=== PATIENT | female | born 1985 | race African-American/Black ===

== ENCOUNTER 2017-07-25 15:45 | Emergency (ER) | payer BC ==
[2017-07-25 17:09] LABS: Hemoglobin 8.8 g/dL (12.0-16.0); Mean Corpuscular HGB CONC 30.3 g/dL (32.0-36.0); Mean Corpuscular Hemoglobin 23.4 pg (27.0-31.0); Mean Corpuscular Volume 77.1 fl (81.0-99.0); Mean Platelet Volume 8.4 fL (7.4-10.4); Platelet Count 506 thou/uL (130-400); RBC Distribution Width 15.8 % (11.5-14.5); Red Blood Cell (RBC) Count 3.76 mill/uL (4.20-5.40); White Blood Cell (WBC) Count 9.3 thou/uL (4.8-10.8)
[2017-07-25 17:18] LABS: BHCG - Serum Negative (NEGATIVE); Pregs Control Background? CLEAR/WHITE (CLR/WHITE); Pregs Control Bar Appear? YES (CONTROL BAR)
[2017-07-25 17:31] LABS: ALT (SGPT) 26 U/L (8-55); AST (SGOT) 21 U/L (5-34); Albumin 4.1 g/dL (3.5-5.0); Alkaline Phosphatase 98 U/L (40-150); Anion Gap 10 mmol/L (10-20); BUN (Urea Nitrogen) 11 mg/dL (7.0-18.7); Bilirubin, Total 0.2 mg/dL (0.2-1.2); Calc. Creatinine Clearance 0 mL/min (70-130); Calcium 9.1 mg/dL (7.8-10.44); Carbon Dioxide 25 mmol/L (22-29); Chloride 108 mmol/L (98-107); Estimated GFR-MDRD Greater than 90; Globulin 3.3 g/dL (2.4-3.5); Glucose 86 mg/dL (70-105); Potassium 3.4 mmol/L (3.5-5.1); Protein, Total 7.4 g/dL (6.0-8.3); Sodium 140 mmol/L (136-145)
[2017-07-25 17:32] LABS: Anisocytosis SLIGHT = 6-15 cells (100X) (0-5/hpf); Band 1 % (5-11); Basophilic Stippling SLIGHT = 1-2 cells (100X) (None Seen); Elliptocytes SLIGHT = 2-5 cells (100X) (0-1/hpf); Eosinophils 1 % (0-10); Hypochromia SLIGHT = 6-15 cells (100X) (0-5/hpf); Lymphocytes 21 % (21-51); MDiff Complete? YES; Microcytosis SLIGHT = 6-15 cells (100X) (0-5/hpf); Monocytes 5 % (0-10); Neutrophil 70 % (42-75); Ovalocytes SLIGHT = 2-5 cells (100X) (0-1/hpf); PLT Morphology Comment Appears Increased; Polychromasia MODERATE = 3-4 cells (100X) (0-2/hpf); Schistocytes SLIGHT = 2-5 cells (100X) (0-1/hpf); Tear Drops SLIGHT = 2-5 cells (100X) (0-1/hpf)
== END 2017-07-25 17:35 | disposition home or self-care (01) ==
LOC: ERS 15:45
DX: N93.8 Other specified abnormal uterine and vaginal bleeding (principal); D64.9 Anemia, unspecified; F41.9 Anxiety disorder, unspecified; Z79.899 Other long term (current) drug therapy
CPT/HCPCS: 36415; 80053; 84703; 85025; 86850; 86900; 86901; 99284

== ENCOUNTER 2017-09-03 15:29 | Outpatient (CLI) | payer BC ==
[2017-09-03 17:16] LABS: Hemoglobin 10.4 g/dL (12.0-16.0); Mean Corpuscular HGB CONC 31.9 g/dL (32.0-36.0); Mean Corpuscular Hemoglobin 26.9 pg (27.0-31.0); Mean Corpuscular Volume 84.4 fl (81.0-99.0); Mean Platelet Volume 8.5 fL (7.4-10.4); Platelet Count 424 thou/uL (130-400); RBC Distribution Width 19.6 % (11.5-14.5); Red Blood Cell (RBC) Count 3.88 mill/uL (4.20-5.40); White Blood Cell (WBC) Count 7.2 thou/uL (4.8-10.8)
[2017-09-03 17:25] LABS: BHCG - Serum Negative (NEGATIVE); Pregs Control Background? CLEAR/WHITE (CLR/WHITE); Pregs Control Bar Appear? YES (CONTROL BAR)
== END 2017-09-03 15:30 | disposition home or self-care (01) ==
LOC: LABBT 15:29
PROVIDERS: ATTEND Obstetrics & Gynecology
DX: Z01.812 Encounter for preprocedural laboratory examination (principal); D21.9 Benign neoplasm of connective and other soft tissue, unspecified; N92.0 Excessive and frequent menstruation with regular cycle
CPT/HCPCS: 84703; 85027; 86850; 86900; 86901

== ENCOUNTER 2017-09-07 08:07 | Observation (INO) | payer BC ==
--- NOTE | 2017-09-03 12:47 | HP ---
DATE OF SURGERY: 09/07/2017 HISTORY OF PRESENT ILLNESS: Ms. Bender is a 32-year-old female G1, P0, A1 with long history of uterine fibroids with menorrhagia. She has had very heavy menstrual flow due to the fibroids, this started back in 2013 and she had received blood transfusions x2 and IV iron therapy fo r anemia secondary to the menorrhagia. She has also tried oral contraceptives and Nexplanon with con tinued heavy flow. She is desiring fertility. Her recent Pap smear and HPV was negative in 2017. PAST MEDICAL HISTORY: As per HPI, otherwise negative. CURRENT MEDICATIONS: Iron and p.r.n. ibuprofen. ALLERGIES: No known drug allergies. SOCIAL HISTORY: Non-smoker, minimal alcohol use. 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 PHYSICAL EXAMINATION: VITAL SIGNS: Her blood pressure is 130/70, pulse 80, respirations 18, height 68 inches, weight 250, BMI of 38. HEENT: Within normal limits. CHEST: Clear to auscultation. HEART: Regular rate and rhythm. S1, S2 heart sounds. No murmurs, rubs or gallops. ABDOMEN: Soft, nontender, nondistended with no palpable masses. PELVIC: She does have pelvic exam. Vulva and vagina had no lesions. Cervix had no lesions. Her ut erus was approximately 14 weeks size, nontender and adnexa were nontender with no masses. Ultrasound of the pelvis on 04/28/2017 showed her to have uterus 11.5 x 8 x 8.5 cm with an anterior fundal fibr oid measuring 6 x 4 x 5.8 cm partially encroaching on the endometrial lining. She has some small pos terior fibroids that were subserosal 3.37 x 2.14, 2.92 x 1.7 cm respectively. Both ovaries appeared normal. ASSESSMENT: This is a 32-year-old female, G1, P0, A1 with a 14-16 week uterine fibr oids desiring fertility with long history of menorrhagia secondary to fibroids causing significant pr oblems with anemia. PLAN: To proceed with robotic laparoscopic assisted myomectomy. There is also a possibility of proc eeding with open laparotomy and myomectomy. The patient is aware of risk of the surgery and also pos sibility of recurrence of more fibroids due to the nature of the fibroids in general. She is also aw are of the need to have sections for any future pregnancies due to the myomectomy procedure and we can have the uterine wall and risk of uterine rupture and labor. Risks and benefits of proced ure have also been discussed in detail. She is set for surgery 09/07/2017.
[2017-09-03 15:52] VITALS: BMI 37.7
[2017-09-07] MEDS ORDERED: Bupivacaine 0.25% HCL 30 ML VIAL ONE (08:33)
[2017-09-07] MEDS ORDERED: Oxytocin 10 UNITS/ML VIAL ONE (08:33)
[2017-09-07] MEDS ORDERED: Lidocaine 2% w/Epinephrine 1:200K 20 ML VIAL ONE (08:33)
[2017-09-07] MEDS ORDERED: Midazolam HCl 2 mg/2 ml Vial ONE (08:45)
[2017-09-07] MEDS ORDERED: CEFAZOLIN/Water 2 GM/20 ML SYRINGE ONE (10:19)
[2017-09-07] MEDS ORDERED: HYDROmorphone 0.5 MG/0.5 ML SYRINGE ONE (10:20)
[2017-09-07] MEDS ORDERED: Fentanyl 100 MCG/2 ML VIAL ONE ×3 (10:20→14:54)
[2017-09-07] MEDS ORDERED: Lidocaine 1% PF 5 ML VIAL ONE (11:55)
[2017-09-07] MEDS ORDERED: Glycopyrrolate 0.2 MG/ML 5 ML SYRINGE ONE (11:55)
[2017-09-07] MEDS ORDERED: Propofol 200 MG/20 ML VIAL ONE (11:55)
[2017-09-07] MEDS ORDERED: Dexamethasone 20 MG/5 ML VIAL ONE (11:55)
[2017-09-07] MEDS ORDERED: HYDROmorphone 2 MG/ML VIAL SLOW IVP PRN (13:23)
[2017-09-07] MEDS ORDERED: Promethazine HCl 25 MG/ML VIAL SLOW IVP PRN (13:23)
[2017-09-07] MEDS ORDERED: Promethazine HCl 25 MG/ML VIAL IM PRN ×2 (13:23→13:29)
[2017-09-07] MEDS ORDERED: Ondansetron HCl/PF 4 MG/2 ML Vial IVP PRN ×2 (13:23→13:29)
[2017-09-07] MEDS ORDERED: traMADol HCl 50 MG TAB PO PRN (13:29)
[2017-09-07] MEDS ORDERED: Simethicone Chewable 80 MG TAB PO PRN (13:29)
[2017-09-07] MEDS ORDERED: Zolpidem Tartrate 5 MG TAB PO PRN (13:29)
[2017-09-07] MEDS ORDERED: diphenhydrAMINE 25 MG CAP PO PRN (13:29)
[2017-09-07] MEDS: Lactated Ringer's 1,000 ML IV SCH (16:06)
[2017-09-07] MEDS: Ketorolac Tromethamine 30 MG/ML VIAL IVP SCH (17:02)
[2017-09-07] MEDS ORDERED: FLU VACC QS2017-18 36 mo. & older 0.5 ML SYRINGE IM ONE (17:30)
[2017-09-07] MEDS: traMADol HCl 50 MG TAB PO PRN (19:11)
[2017-09-07] MEDS ORDERED: Morphine 5 MG/ML SYRINGE SLOW IVP PRN (20:06)
[2017-09-07] MEDS: Ferrous Sulfate 325 MG TAB PO SCH (21:05)
[2017-09-08] MEDS: Lactated Ringer's 1,000 ML IV SCH (00:05)
[2017-09-08] MEDS: Ketorolac Tromethamine 30 MG/ML VIAL IVP SCH ×2 (01:18→06:10)
--- NOTE | 2017-09-08 04:02 | OP ---
DATE OF SURGERY: 09/07/2017 PREOPERATIVE DIAGNOSES: 1. A 32-year-old -[place]ish female, , A1 with 14-week symptomatic uterine fibroids with m enorrhagia and resulting anemia in the past. 2. Desires fertility. POSTOPERATIVE DIAGNOSES: 1. A 32-year-old -[place]ish female, , A1 with 14-week symptomatic uterine fibroids with m enorrhagia and resulting anemia in the past. 2. Desires fertility. PROCEDURE PERFORMED: Robotic-assisted laparoscopic uterine myomectomies. SURGEON: Olga Veras M.D. ASSISTANT PORTFOLIO MANAGER SURGEON: Randy Chiang M.D. ANESTHESIA: General endotracheal. ESTIMATED BLOOD LOSS: 300 mL. COMPLICATIONS: None. COUNTS: Correct x2. ANTIBIOTICS: Two grams Ancef medical radiation tech to OR. FINDINGS: 1. Normal-appearing bilateral fallopian tubes and ovaries. 2. Anterior and posterior fundal uterine fibroid noted approximately 8 cm involving the intramural a nd intracavitary location of the uterus. A 3 cm subserosal posterior fibroid removed. Otherwise, no rmal appendix, liver, gallbladder. DISPOSITION: Recovery room, stable. DESCRIPTION OF OPERATIVE PROCEDURE: The patient previously received informed consent in regard to [facility], taken to the operating room where she received a general endotracheal anesthetic agent without complications. She was placed in the dorsal lithotomy position with use of Ricardo stirrups. Coats c atheter was placed. A sidearm speculum was placed in the vagina and the anterior lip was grasped. C ervix grasped with single-tooth tenaculum. The uterus sounded to 11 cm. A size 10 mm OMAR uterine m anipulator was placed. A 3.5 cm cervical cup was placed in order to maneuver the uterus during the m yomectomy procedure. Next, attention was turned to the abdomen where perspective trocar sites were i nfiltrated with 0.5% Marcaine with epinephrine. A 10 mm supraumbilical incision was made. It was ca rried down the fascia. Veress needle was then placed into the abdominal cavity and patient pressure was noted to be less than 5 mm. The abdomen was insufflated to a patient pressure of 15, approximate ly 4-5 L carbon dioxide gas. A size 12 mm trocar was then placed. Robotic laparoscope was introduce d through the trocar sleeve confirming proper entry. Bilateral lower quadrant 8 mm robotic trocars w ere placed under laparoscopic guidance along with an 11 mm right upper quadrant nurse assistant port. A Pi tressin solution containing 20 units of Pitressin and 100 mL of normal saline was mixed in 20 mL of t his solution, approximately 4 units of Pitressin were injected with a long spinal needle under laparo scopic guidance into the anterior fundal fibroid and posterior fibroid regions. At this time, the pa tient was placed in Trendelenburg and robot was docked in usual fashion. I proceeded to carry out th e surgery from the surgical console while my assistants remained at the bedside. The uterus was elev ated, it was inspected and identified the location of the large fundal fibroid. The monopolar scisso rs were utilized to incise over the midline posterior and anterior fundal region overlying the fibroi d. Once the serosa was incised and then we got onto the surface of the fibroid, my nurse assistant placed a single tooth tenaculum clamp into the fibroid. I used a cobra tissue retractor along with monopola r scissors and then the myoma was shelled out in a surgical plane between the myoma and the subserosa l intermural tissues. With continued sharp and blunt dissection and traction, the myoma was released and freed. It did go into the cavity of the uterus. Once this was accomplished, the posterior subs erosal myoma was also removed by incising a vertical incision over the posterior subserosal fibroid a nd again grasped by my nurse assistant with a tenaculum and then incised removing it in its entirety. The posterior uterine defect from the subserosal fibroid was then closed with the Stratafix suture in running full thickness closure with hemostasis confirmed. The large defect in the uterus and the fundus was closed in double layer closure starting in the endo metrial layer by containing the cavity in its integrity of the cavity by visualization of the [facility] erine manipulator which the bulb had deflated, but this gave us idea where the exact location of the endometrial cavity. The endometrial layer was closed in running continuous fashion with a Stratafix and then we went up towards the upper layer of the myometrium reapproximating the uterine defect. Ad ditional Stratafix suture again was placed overlying the serosa in the intramural layers obtaining go od closure and adequate hemostasis. The pelvis was irrigated and suctioned. Tisseel was then applie d for further hemostasis over the incision site of the uterus. The myoma had been delivered in the p osterior cul-de-sac. We first attempted to place this in the Endobag, but the size of the 8 cm myoma prohibited complete closure of the bag, so that was removed. A small Gelpoint was then placed in th e infraumbilical incision area, was extended approximately 2.5 cm of the fascial defect, Gelpoint was placed with the retractor. The laparoscope was introduced through the trocars that was placed in th e Gelpoint visualizing the small myoma, which was grasped by my nurse assistant with a single-tooth tenacul um clamp. The scope was removed and the Gelpoint aperture was opened and I was able to retrieve the small myoma under direct visualization by my nurse assistant bringing a small myoma up through the opening of the aperture and grasping this with a Annie thyroid clamp and this removed the small myoma. Again the scope was replaced, the aperture closed, abdomen reinsufflated and the scope was placed, the lar ge myoma was grasped by my nurse assistant with a grasper with teeth and brought up towards the umbilicus, where the small Gelpoint aperture hold was noted. The scope was removed, the aperture was opened and the myoma was then brought up through the fascial defect here. It was grasped with Annie thyroid cl amps and it was cut out removing in its entirety by decompressing in its size somewhat and pulling up through the surgical site. Once this was accomplished, the bowel was rechecked and there was no evelio dence of any injury from below. The Gelpoint retractor was removed. The fascia was closed under the umbilicus areas running 0 Vicryl suture. Good fascial closure was confirmed. The remainder of the skin trocar sites were closed with 4-0 Monocryl and Dermabond. There was no heavy vaginal bleeding n oted after removal of the OMAR uterine manipulator. The patient was awakened from anesthesia and tra nsferred to the recovery room in stable condition.
[2017-09-08 06:11] LABS: Mean Corpuscular HGB CONC 31.7 g/dL (32.0-36.0); Mean Corpuscular Hemoglobin 26.5 pg (27.0-31.0); Mean Corpuscular Volume 83.5 fl (81.0-99.0); Mean Platelet Volume 8.2 fL (7.4-10.4); Platelet Count 428 thou/uL (130-400); RBC Distribution Width 18.4 % (11.5-14.5); Red Blood Cell (RBC) Count 3.41 mill/uL (4.20-5.40); White Blood Cell (WBC) Count 13.2 thou/uL (4.8-10.8)
--- NOTE | 2017-09-08 07:49 | PDOC.EVN ---
Event Note - Event Note Event Note: Feels better this Am. Pain much improved. Tolerating diet. Ambulated and voided this Am. No nausea. O: Hct 32 to 28.5 %..Pulse 64. BP 100/50. R 20. T 98.7. ABD: soft non distended. active bowel sounds. trochar sites clean dry and intact. scant vaginal bleeding. A/P Post op day 1 from robotic laparoscopic myomectomies. Doing well. D/c home this AM. tramadol for pain and meloxicam. Has f/u in 2 weeks.
[2017-09-08 08:14] VITALS: BP 92/55; TEMP 98.4
[2017-09-08] MEDS: Ferrous Sulfate 325 MG TAB PO SCH (09:04)
[2017-09-08] MEDS: traMADol HCl 50 MG TAB PO PRN (09:05)
--- NOTE | 2017-09-08 17:48 | DIS ---
23-hour through observation for the day surgery occurring on 09/07/2017 DATE OF DISCHARGE: 09/08/2017 DIAGNOSES: 1. Symptomatic uterine fibroids. 2. Menorrhagia and resultant anemia. 3. Desires fertility. PROCEDURE PERFORMED: Robotic laparoscopic myomectomies. SUMMARY OF HOSPITAL COURSE: Ms. Bender is a 32-year-old -[place] female, nulliparous pat ient who has had a long history of symptomatic uterine fibroids with subsequent menorrhagia with anem ia requiring a couple of occasions of transfusions. She desires fertility and underwent a robotic-as sisted myomectomies on 09/07/2017. Her postoperative course has gone well. She has had stable vital signs. Her pain control was adequately covered with IV Toradol and morphine and is on p.o. narcotic s this morning along with ibuprofen with adequate pain control. Her hematocrit was initially 32% pre op and 28.5% this morning and vital signs are stable with a temperature of 98.7, pulse 64, blood pres sure 100/50, respirations 20. She is ambulating, voiding, and tolerating diet without difficulty and the plan is for discharge home. She is given a prescription for tramadol 50 mg p.o. q.6 hours p.r.n . pain #30 and is also to use her meloxicam 15 mg daily for pain. She is to continue her iron therap y with 325 mg of ferrous sulfate 1 p.o. b.i.d. and is scheduled for followup in 2 weeks.
[2017-09-13] MEDS ORDERED: Meloxicam 15 MG TAB PO SCH (09:00)
[2017-09-13] MEDS ORDERED: Ibuprofen 800 MG TAB PO SCH (09:00)
== END 2017-09-08 09:56 | disposition home or self-care (01) ==
LOC: SDC 08:07 → 3SE 13:29 → EDSTATUS 16:30
PROVIDERS: ADMIT Obstetrics & Gynecology; ATTEND Obstetrics & Gynecology
PROC: 0UB94ZZ Excision of Uterus, Percutaneous Endoscopic Approach (ICD-10-PCS; principal; 2017-09-07)
DX: D25.1 Intramural leiomyoma of uterus (principal); D25.2 Subserosal leiomyoma of uterus; N92.0 Excessive and frequent menstruation with regular cycle; D50.0 Iron deficiency anemia secondary to blood loss (chronic); F41.9 Anxiety disorder, unspecified; Z87.891 Personal history of nicotine dependence; Z79.899 Other long term (current) drug therapy; Z91.018 Allergy to other foods
CPT/HCPCS: 36415; 85027; 88305; 96361; 96374; 96375; 96376; J2270; G0378; J0131; J1100; J1170; J1885; J2001; J2250; J2590; J2704; J3010; S0020

== ENCOUNTER 2017-10-20 23:17 | Emergency (ER) | payer BC ==
--- NOTE | 2017-10-21 00:03 | RAD ---
TWO VIEWS OF THE CHEST 10/20/17 COMPARISON: None. HISTORY: Chest pain that started 45 minutes prior to arrival. FINDINGS: Two views of the chest show normal sized cardiomediastinal silhouette. There is no evidence of consol idation, mass, or pleural effusion. The bones are unremarkable. IMPRESSION: No evidence of acute cardiopulmonary disease. POS: [facility]
[2017-10-21 00:17] LABS: #Basophils 0.1 thou/uL (0.0-0.2); #Eosinphils 0.1 thou/uL (0.0-0.7); #Lymphocytes 2.1 thou/uL (1.20-3.40); #Monocytes 0.6 thou/uL (0.11-0.59); #Neutrophils 9.1 thou/uL (1.40-6.50); %Basophils 0.7 % (0.0-1.0); %Eosinophils 0.6 % (0.0-10.0); %Lymphocytes 17.3 % (21.0-51.0); %Monocytes 4.7 % (0.0-10.0); %Neutrophils 76.7 % (42.0-75.0); Hemoglobin 11.8 g/dL (12.0-16.0); Mean Corpuscular HGB CONC 31.8 g/dL (32.0-36.0); Mean Corpuscular Hemoglobin 25.5 pg (27.0-31.0); Mean Corpuscular Volume 80.2 fl (81.0-99.0); Mean Platelet Volume 8.2 fL (7.4-10.4); Platelet Count 556 thou/uL (130-400); RBC Distribution Width 15.5 % (11.5-14.5); Red Blood Cell (RBC) Count 4.62 mill/uL (4.20-5.40); White Blood Cell (WBC) Count 11.9 thou/uL (4.8-10.8)
[2017-10-21] MEDS ORDERED: Lidocaine Viscous Sol 2% 15 ml UD Cup ONE (00:25)
[2017-10-21] MEDS ORDERED: Mag-Al 1200 mg/1200 mg/30 ML UDCUP ONE (00:25)
[2017-10-21 00:39] LABS: ALT (SGPT) 19 U/L (8-55); AST (SGOT) 24 U/L (5-34); Albumin 4.5 g/dL (3.5-5.0); Alkaline Phosphatase 108 U/L (40-150); Anion Gap 12 mmol/L (10-20); BUN (Urea Nitrogen) 8 mg/dL (7.0-18.7); Bilirubin, Total 0.3 mg/dL (0.2-1.2); CK (CPK) 66 U/L (29-168); Calc. Creatinine Clearance 0 mL/min (70-130); Calcium 9.3 mg/dL (7.8-10.44); Carbon Dioxide 29 mmol/L (22-29); Chloride 101 mmol/L (98-107); Estimated GFR-MDRD 74; Globulin 3.8 g/dL (2.4-3.5); Glucose 126 mg/dL (70-105); Protein, Total 8.3 g/dL (6.0-8.3); Sodium 139 mmol/L (136-145)
[2017-10-21 00:42] LABS: CKMB 0.3 ng/mL (0-6.6); Troponin I Less than 0.010 ng/mL (< 0.028)
[2017-10-21] MEDS ORDERED: Potassium Chloride 20 MEQ TAB ONE (01:24)
[2017-10-21 03:35] LABS: Troponin I Less than 0.010 ng/mL (< 0.028)
== END 2017-10-21 03:59 | disposition home or self-care (01) ==
LOC: ERS 23:17
DX: R07.89 Other chest pain (principal); D64.9 Anemia, unspecified; F41.9 Anxiety disorder, unspecified
CPT/HCPCS: 36415; 71046; 80053; 82553; 84484; 85025; 85379; 93005

== ENCOUNTER 2018-01-12 00:44 | Emergency (ER) | payer BC ==
[2018-01-12 01:17] LABS: #Basophils 0.1 thou/uL (0.0-0.2); #Eosinphils 0.1 thou/uL (0.0-0.7); #Lymphocytes 1.8 thou/uL (1.20-3.40); #Monocytes 0.5 thou/uL (0.11-0.59); #Neutrophils 5.5 thou/uL (1.40-6.50); %Basophils 0.9 % (0.0-1.0); %Lymphocytes 22.6 % (21.0-51.0); %Monocytes 6.7 % (0.0-10.0); %Neutrophils 68.8 % (42.0-75.0); Mean Corpuscular Volume 75.1 fl (81.0-99.0); Mean Platelet Volume 8.5 fL (7.4-10.4); Platelet Count 415 thou/uL (130-400); RBC Distribution Width 15.4 % (11.5-14.5); Red Blood Cell (RBC) Count 4.58 mill/uL (4.20-5.40)
[2018-01-12 01:38] LABS: ALT (SGPT) 22 U/L (8-55); AST (SGOT) 36 U/L (5-34); Albumin 4.1 g/dL (3.5-5.0); Alkaline Phosphatase 95 U/L (40-150); Anion Gap 10 mmol/L (10-20); BUN (Urea Nitrogen) 10 mg/dL (7.0-18.7); Bilirubin, Total 0.3 mg/dL (0.2-1.2); Calc. Creatinine Clearance 0 mL/min (70-130); Calcium 8.9 mg/dL (7.8-10.44); Carbon Dioxide 24 mmol/L (22-29); Chloride 109 mmol/L (98-107); Estimated GFR-MDRD Greater than 90; Globulin 3.2 g/dL (2.4-3.5); Glucose 119 mg/dL (70-105); Protein, Total 7.3 g/dL (6.0-8.3); Sodium 140 mmol/L (136-145)
[2018-01-12 02:16] LABS: CKMB 0.4 ng/mL (0-6.6); Troponin I Less than 0.010 ng/mL (< 0.028)
[2018-01-12] MEDS ORDERED: Lidocaine Viscous Sol 2% 15 ml UD Cup ONE (02:43)
[2018-01-12] MEDS ORDERED: Mag-Al 1200 mg/1200 mg/30 ML UDCUP ONE (02:43)
--- NOTE | 2018-01-12 08:40 | RAD ---
PORTABLE CHEST 1 VIEW: DATE: 01/12/18. TIME: 1:53 a.m. HISTORY: Chest pain. FINDINGS: The heart size is normal. The lungs are expanded and clear. The bony thorax is normal. IMPRESSION: Normal exam. POS: [facility]
--- NOTE | 2018-01-12 08:46 | ULT ---
PRELIMINARY REPORT/[facility]/EMERGENTY AFTER-HOURS PROCEDURE US Abdomen Limited, Right Upper Quadrant CLINICAL HISTORY: 32 years old, female; Pain and signs and symptoms; Nausea and vomiting; Abdominal pain; Localized; Ot her: Epigastric TECHNIQUE: Real-time ultrasound of the abdomen with image documentation. Examination is focused on the right upper quadrant. COMPARISON: No relevant prior studies available. FINDINGS: Liver: Hepatic steatosis. Gallbladder: Wall echo shadow complex indicating gallbladder full of gallstones. No gallbladder wall thickening. No pericholecystic fluid. Sonographic Henao's sign reported positive. Common bile duct: Normal. No stones. No dilation. Pancreas: Visualized pancreas is unremarkable. Right kidney: Normal. No mass. No hydronephrosis. IMPRESSION: Gallbladder full of gallstones. No wall thickening or pericholecystic fluid to indicate acute cholecy stitis. Thank you for allowing us to participate in the care of your patient. Dictated and Authenticated by: Chao Ng MD 01/12/2018 4:04 AM Central Time ([place] & [place]) FINAL REPORT: SONOGRAM RIGHT UPPER QUADRANT: DATE: 01/12/18. TIME: Performed on an emergency basis at 0319 hours. HISTORY: Right upper quadrant pain. FINDINGS: Agree with the preliminary report by Dr. Ng from [facility]. Cholelithiasis is confirmed . No sonographic evidence of acute cholecystitis. POS: [facility]
== END 2018-01-12 04:48 | disposition home or self-care (01) ==
LOC: ERS 00:44
DX: K80.20 Calculus of gallbladder without cholecystitis without obstruction (principal); D64.9 Anemia, unspecified; F32.9 Major depressive disorder, single episode, unspecified; F41.9 Anxiety disorder, unspecified; Z71.6 Tobacco abuse counseling
CPT/HCPCS: 36415; 71045; 76705; 80053; 82553; 83690; 84484; 85025; 93005; 99406

== ENCOUNTER 2018-02-17 13:45 | Outpatient (CLI) | payer BC ==
[2018-02-17 14:27] LABS: #Basophils 0.1 thou/uL (0.0-0.2); #Eosinphils 0.1 thou/uL (0.0-0.7); #Monocytes 0.4 thou/uL (0.11-0.59); #Neutrophils 4.4 thou/uL (1.40-6.50); %Basophils 0.8 % (0.0-1.0); %Eosinophils 0.8 % (0.0-10.0); %Lymphocytes 28.9 % (21.0-51.0); %Monocytes 5.3 % (0.0-10.0); %Neutrophils 64.2 % (42.0-75.0); Hemoglobin 10.6 g/dL (12.0-16.0); Mean Corpuscular HGB CONC 32.4 g/dL (32.0-36.0); Mean Corpuscular Hemoglobin 24.5 pg (27.0-31.0); Mean Corpuscular Volume 75.5 fL (78.0-98.0); Mean Platelet Volume 8.4 fL (7.4-10.4); Platelet Count 433 thou/uL (130-400); RBC Distribution Width 15.5 % (11.5-14.5); Red Blood Cell (RBC) Count 4.33 mill/uL (4.20-5.40); White Blood Cell (WBC) Count 6.8 thou/uL (4.8-10.8)
[2018-02-17 14:54] LABS: ALT (SGPT) 16 U/L (8-55); AST (SGOT) 15 U/L (5-34); Albumin 4.3 g/dL (3.5-5.0); Alkaline Phosphatase 96 U/L (40-150); Anion Gap 16 mmol/L (10-20); BUN (Urea Nitrogen) 9 mg/dL (7.0-18.7); Bilirubin, Total 0.4 mg/dL (0.2-1.2); Calc. Creatinine Clearance 0 mL/min (70-130); Calcium 9.1 mg/dL (7.8-10.44); Carbon Dioxide 21 mmol/L (22-29); Chloride 106 mmol/L (98-107); Estimated GFR-MDRD Greater than 90; Globulin 3.2 g/dL (2.4-3.5); Glucose 107 mg/dL (70-105); Potassium 3.6 mmol/L (3.5-5.1); Protein, Total 7.5 g/dL (6.0-8.3); Sodium 139 mmol/L (136-145)
== END 2018-02-17 13:46 | disposition home or self-care (01) ==
LOC: LABBT 13:45
PROVIDERS: ATTEND Specialist
DX: Z01.812 Encounter for preprocedural laboratory examination (principal); K80.20 Calculus of gallbladder without cholecystitis without obstruction
CPT/HCPCS: 80053; 85025

== ENCOUNTER 2018-02-23 12:45 | Day surgery (SDC) | payer BC ==
[2018-02-17 13:57] VITALS: BMI 36.3
[2018-02-23] MEDS ORDERED: Lidocaine 1% PF 5 ML VIAL ONE (13:08)
[2018-02-23] MEDS ORDERED: PROPOFOL 200 MG/20 ML VIAL ONE (13:08)
[2018-02-23] MEDS ORDERED: Glycopyrrolate 0.2 MG/ML 5 ML SYRINGE ONE (13:08)
[2018-02-23] MEDS ORDERED: Ketorolac Tromethamine 30 MG/ML VIAL ONE (13:56)
[2018-02-23] MEDS ORDERED: CEFAZOLIN/Water 2 GM/20 ML SYRINGE ONE (13:56)
[2018-02-23] MEDS ORDERED: Bupivacaine/Epinephrine 0.25% 30 ML VIAL ONE (15:35)
[2018-02-23] MEDS ORDERED: Fentanyl 100 MCG/2 ML VIAL ONE ×3 (15:42→19:17)
[2018-02-23] MEDS ORDERED: Midazolam HCl 2 mg/2 ml Vial ONE ×2 (15:42→15:49)
[2018-02-23] MEDS ORDERED: HYDROcodone/Acetaminophen 5/325 mg Tablet ONE ×2 (18:26→19:24)
[2018-02-23] MEDS ORDERED: Promethazine HCl 25 MG/ML VIAL ONE (19:17)
--- NOTE | 2018-02-24 08:10 | OP ---
DATE OF PROCEDURE: 02/23/2018 PREOPERATIVE DIAGNOSIS: Symptomatic cholelithiasis. POSTOPERATIVE DIAGNOSIS: Symptomatic cholelithiasis. PROCEDURE: Laparoscopic cholecystectomy. SURGEON: Dr. Patel Killian ANESTHESIA: General endotracheal. INDICATIONS: The patient is a 32-year-old black female. She presents with symptoms referable to angel wilkinson and ultrasound proven cholelithiasis. PROCEDURE IN DETAIL: Informed consent was obtained. The patient was taken to the operating room whe re general endotracheal anesthesia was obtained with the patient in the supine position. The abdomen was prepped with Betadine and draped in the usual sterile fashion. Quarter percent Marcaine with ep inephrine was infiltrated below the umbilicus and a 10 mm infraumbilical incision was created. A Lisa ess needle was passed through this incision into the peritoneal cavity. A pneumoperitoneum was estab lished using carbon dioxide up to a pressure of 15 mmHg. Local anesthetic was infiltrated and three additional 5 mm right upper quadrant incisions were created. Through the mid incision, a 5 mm port w as passed into the peritoneal cavity. The camera was passed through this port and under direct visio n, an 11 port is passed through the infraumbilical incision. The camera was replaced through this port, and under dir ect vision, two additional 5 mm ports were passed through the incisions already created. The gallbladder was grasped and retracted in a cephalad direction. Minimal adhesions were bluntly st ripped away from the apex of the gallbladder, and the apex was retracted laterally and inferiorly. C areful dissection was carried out to the apex of the gallbladder to identify the cystic duct and cyst ic artery. These were each carefully dissected circumferentially. The duct was of normal caliber. Both the duct and the artery were divided between clips leaving two on the side to remain within the abdomen. The gallbladder was then dissected out of the gallbladder fossa using electrocautery and re moved through the infraumbilical port site. The fascia was closed with 0 Vicryl suture and a GraNee needle. The right upper quadrant was inspected and irrigated. All irrigant was aspirated. All port s and instruments were removed under direct vision. Pneumoperitoneum was carefully evacuated. Addit ional local anesthetic was infiltrated into each port site. The skin edges were approximated with 4- 0 Monocryl subcuticular sutures, and Dermabond was placed externally. There were no complications. The patient tolerated the procedure well and was taken to the Recovery Room in stable condition. FINDINGS: The patient had a prior laparoscopic surgery that utilized a supraumbilical incision and t his incision was reused at this time. The gallbladder was without significant pericholecystic inflam mation. There were no significant adhesions to the gallbladder. There were numerous stones in the g allbladder. The duct was small and noninflamed. Liver function tests were normal prior to the proce dure and a cholangiogram was not performed. There were no complications. The patient tolerated the procedure well and was taken to recovery room in stable condition.
== END 2018-02-23 20:23 | disposition home or self-care (01) ==
LOC: SDC 12:45
PROVIDERS: ATTEND Specialist
PROC: 0FT44ZZ Resection of Gallbladder, Percutaneous Endoscopic Approach (ICD-10-PCS; principal; 2018-02-23)
DX: K80.10 Calculus of gallbladder with chronic cholecystitis without obstruction (principal); F32.9 Major depressive disorder, single episode, unspecified; Z87.891 Personal history of nicotine dependence; Z79.899 Other long term (current) drug therapy; Z88.8 Allergy status to other drugs, medicaments and biological substances; Z91.018 Allergy to other foods
CPT/HCPCS: 88304; 96374; 96375; 96376; J0131; J1885; J2001; J2250; J2550; J2704; J3010

== ENCOUNTER 2018-03-28 14:59 | Emergency (ER) | payer BC ==
[2018-03-28 15:33] LABS: #Eosinphils 0.1 thou/uL (0.0-0.7); #Lymphocytes 0.5 thou/uL (1.20-3.40); #Monocytes 0.4 thou/uL (0.11-0.59); #Neutrophils 10.4 thou/uL (1.40-6.50); %Basophils 0.2 % (0.0-1.0); %Eosinophils 0.6 % (0.0-10.0); %Lymphocytes 4.6 % (21.0-51.0); %Monocytes 3.4 % (0.0-10.0); %Neutrophils 91.3 % (42.0-75.0); Hemoglobin 11.3 g/dL (12.0-16.0); Mean Corpuscular HGB CONC 33.2 g/dL (32.0-36.0); Mean Corpuscular Hemoglobin 24.9 pg (27.0-31.0); Mean Corpuscular Volume 75.1 fL (78.0-98.0); Mean Platelet Volume 8.3 fL (7.4-10.4); Platelet Count 370 thou/uL (130-400); RBC Distribution Width 15.1 % (11.5-14.5); Red Blood Cell (RBC) Count 4.52 mill/uL (4.20-5.40); White Blood Cell (WBC) Count 11.4 thou/uL (4.8-10.8)
[2018-03-28] MEDS ORDERED: Ondansetron ODT 8 MG TAB ONE (15:51)
[2018-03-28 15:55] LABS: ALT (SGPT) 51 U/L (8-55); AST (SGOT) 50 U/L (5-34); Albumin 4.5 g/dL (3.5-5.0); Alkaline Phosphatase 124 U/L (40-150); Anion Gap 11 mmol/L (10-20); BUN (Urea Nitrogen) 11 mg/dL (7.0-18.7); Bilirubin, Total 0.7 mg/dL (0.2-1.2); Calc. Creatinine Clearance 0 mL/min (70-130); Calcium 8.8 mg/dL (7.8-10.44); Carbon Dioxide 19 mmol/L (22-29); Chloride 109 mmol/L (98-107); Estimated GFR-MDRD 89; Globulin 3.7 g/dL (2.4-3.5); Glucose 107 mg/dL (70-105); Potassium 3.2 mmol/L (3.5-5.1); Protein, Total 8.2 g/dL (6.0-8.3); Sodium 136 mmol/L (136-145)
[2018-03-28 16:00] LABS: Bilirubin Moderate (Negative); Blood, Urine Large (Negative); Glucose, Urine (Dipstick) Negative (Negative); Leukocyte Moderate (Negative); Nitrite Negative (Negative); Protein, Urine (Dipstick) 30 mg/dL (Neg-Trace); Urobilinogen 0.2 mg/dL (0.2-1.0)
[2018-03-28 16:02] LABS: Clarity Turbid (Clear)
[2018-03-28 16:05] LABS: Bacteria/HPF 4+ HPF (None Seen); Crystals/HPF 2+ AMORPH URATES HPF (Negative); Hyaline Casts/LPF NONE SEEN LPF (0-3 Hyaline); Pregnancy Test - Urine (BHCG) Negative (Negative); Pregu Control Background? CLEAR/WHITE (CLR/WHITE); Pregu Control Bar Appear? YES (CONTROL BAR)
== END 2018-03-28 17:03 | disposition home or self-care (01) ==
LOC: ERS 14:59
DX: N39.0 Urinary tract infection, site not specified (principal); R19.7 Diarrhea, unspecified; D64.9 Anemia, unspecified
CPT/HCPCS: 36415; 80053; 81003; 81015; 81025; 85025; 87077; 87086; 87186; 99284

== ENCOUNTER 2018-11-08 23:30 | Emergency (ER) | payer BC ==
[2018-11-09 00:51] LABS: BHCG - Serum Negative (NEGATIVE); Pregs Control Background? CLEAR/WHITE (CLR/WHITE); Pregs Control Bar Appear? YES (CONTROL BAR)
[2018-11-09 01:02] LABS: ALT (SGPT) 24 U/L (8-55); AST (SGOT) 35 U/L (5-34); Alkaline Phosphatase 110 U/L (40-150); Anion Gap 11 mmol/L (10-20); BUN (Urea Nitrogen) 8 mg/dL (7.0-18.7); Bilirubin, Total 0.2 mg/dL (0.2-1.2); Calc. Creatinine Clearance 0 mL/min (70-130); Carbon Dioxide 27 mmol/L (22-29); Chloride 106 mmol/L (98-107); Estimated GFR-MDRD Greater than 90; Globulin 3.3 g/dL (2.4-3.5); Glucose 104 mg/dL (70-105); Potassium 3.6 mmol/L (3.5-5.1); Protein, Total 7.3 g/dL (6.0-8.3); Sodium 140 mmol/L (136-145)
[2018-11-09 01:04] LABS: #Basophils 0.1 thou/uL (0.0-0.2); #Eosinphils 0.1 thou/uL (0.0-0.7); #Lymphocytes 2.6 thou/uL (1.20-3.40); #Neutrophils 8.4 thou/uL (1.40-6.50); %Basophils 0.9 % (0.0-1.0); %Eosinophils 0.5 % (0.0-10.0); %Lymphocytes 21.8 % (21.0-51.0); %Monocytes 7.8 % (0.0-10.0); Anisocytosis SLIGHT = 6-15 cells (100X) (0-5/hpf); Hemoglobin 8.6 g/dL (12.0-16.0); Hypochromia SLIGHT = 6-15 cells (100X) (0-5/hpf); MDiff Complete? YES; Mean Corpuscular HGB CONC 29.9 g/dL (32.0-36.0); Mean Corpuscular Hemoglobin 21.3 pg (27.0-31.0); Mean Corpuscular Volume 71.1 fL (78.0-98.0); Mean Platelet Volume 9.4 fL (7.4-10.4); Microcytosis SLIGHT = 6-15 cells (100X) (0-5/hpf); Platelet Count 349 thou/uL (130-400); Platelet Morphology Comment Appears Adequate; RBC Distribution Width 15.7 % (11.5-14.5); Red Blood Cell (RBC) Count 4.05 mill/uL (4.20-5.40); White Blood Cell (WBC) Count 12.1 thou/uL (4.8-10.8)
== END 2018-11-09 02:34 | disposition home or self-care (01) ==
LOC: ERS 23:30
DX: G44.209 Tension-type headache, unspecified, not intractable (principal); D64.9 Anemia, unspecified; F32.9 Major depressive disorder, single episode, unspecified; F41.9 Anxiety disorder, unspecified
CPT/HCPCS: 36415; 80053; 84703; 85025; 93005

== ENCOUNTER 2023-08-31 20:26 | Emergency (ER) | payer BC ==
[2023-08-31 21:15] LABS: #Basophils 0.1 thou/uL (0.0-0.2); #Eosinphils 0.1 thou/uL (0.0-0.7); #Monocytes 0.6 thou/uL (0.11-0.59); #Neutrophils 3.7 thou/uL (1.40-6.50); %Eosinophils 1.9 % (0.0-10.0); %Lymphocytes 33.7 % (21.0-51.0); %Monocytes 8.7 % (0.0-10.0); %Neutrophils 54.6 % (42.0-75.0); Hematocrit 29.1 % (36.0-47.0); Hemoglobin 8.5 g/dL (12.0-16.0); Mean Corpuscular HGB CONC 29.2 g/dL (32.0-36.0); Mean Corpuscular Hemoglobin 24.1 pg (27.0-31.0); Mean Corpuscular Volume 82.4 fl (78.0-98.0); Mean Platelet Volume 10.2 fL (7.4-10.4); Platelet Count 457 10x3/uL (130-400); RBC Distribution Width 13.5 % (11.5-14.5); Red Blood Cell (RBC) Count 3.53 mill/uL (4.20-5.40); White Blood Cell (WBC) Count 6.8 10x3/uL (4.8-10.8)
[2023-08-31 21:23] LABS: Bilirubin Negative (Negative); Blood, Urine Negative (Negative); CAUTI Indications for Culture Alt mental st,lethar; Clarity Clear (Clear); Glucose, Urine (Dipstick) Normal (Negative); Ketone, Urine Negative (Negative); Leukocyte 250 Leu/uL (Negative); Nitrite Negative (Negative); Protein, Urine (Dipstick) Negative (Neg-Trace); RBC/HPF 0-3 HPF (0-3); Renal Epithelial 0-3 HPF (None Seen); Specific Gravity, Urine 1.012 (1.002-1.036); Urobilinogen Normal mg/dL (Less than 2)
[2023-08-31 21:36] LABS: Bacteria/HPF 2+ HPF (None Seen)
[2023-08-31 21:37] LABS: ALT (SGPT) 16 U/L (8-55); AST (SGOT) 17 U/L (5-34); Albumin 4.1 g/dL (3.5-5.0); Alkaline Phosphatase 63 U/L (40-110); Anion Gap 11 mmol/L (10-20); BUN (Urea Nitrogen) 7 mg/dL (7.0-18.7); Bilirubin, Total 0.3 mg/dL (0.2-1.2); Calc. Creatinine Clearance 0 mL/min (70-130); Calcium 8.7 mg/dL (7.8-10.44); Carbon Dioxide 22 mmol/L (22-29); Chloride 108 mmol/L (98-107); Estimated GFR 89; Glucose 84 mg/dL (70-105); Potassium 3.2 mmol/L (3.5-5.1); Protein, Total 7.1 g/dL (6.0-8.3); Sodium 138 mmol/L (136-145)
[2023-08-31 21:38] LABS: Urine Culture Reflex No No
== END 2023-08-31 22:34 | disposition home or self-care (01) ==
LOC: ERS 20:26
DX: D64.9 Anemia, unspecified (principal); R53.1 Weakness
CPT/HCPCS: 36415; 80053; 81001; 85025; 86850; 86900; 86901; 93005